=== PATIENT | female | born 1960 | race Caucasian/White ===

== ENCOUNTER 2022-11-22 08:37 | Emergency (ER) | payer MEDICAID ==
[2022-11-22] MEDS ORDERED: Acetaminophen 500 MG Tab PO ONE (08:46)
[2022-11-22] MEDS ORDERED: cefTRIAXone 1 GM, Lidocaine 1% 2.1 ML IM ONE ×2 (08:47)
[2022-11-22] MEDS ORDERED: Diphtheria,Pertussis(Acell),Tetanus Vaccine 0.5 ML Syringe IM ONE (09:11)
[2022-11-22 09:14] VITALS: BP 150/82; PULSE 63
[2022-11-22] MEDS ORDERED: HYDROmorphone 0.5 MG/0.5 ML Syringe IVPUSH ONE (09:14)
[2022-11-22] MEDS ORDERED: Ondansetron 4 MG/2 ML SDV IVPUSH ONE (09:14)
[2022-11-22] MEDS ORDERED: Sodium Chloride 0.9% 10 ML Syringe FLUSH PRN (09:15)
[2022-11-22] MEDS ORDERED: Lidocaine 1% 5 ML VIAL INJECT ONE (09:34)
== END 2022-11-22 10:29 | disposition home or self-care (01) ==
LOC: DL.ED 08:37
DX: S61.233A Puncture wound without foreign body of left middle finger without damage to nail, initial encounter (principal); I10 Essential (primary) hypertension; Z23 Encounter for immunization; Z79.899 Other long term (current) drug therapy; W34.00XA Accidental discharge from unspecified firearms or gun, initial encounter
CPT/HCPCS: 12001; 73120-LT; 90471; 90715; 96372; 96374; 96375; 99283; 99284-25; A9270-GY; J0696; J1170; J2405; J3490